=== PATIENT | female | born 1945 | race Caucasian/White ===

== ENCOUNTER 2018-06-04 14:04 | Emergency (ER) | payer MEDICARE ==
[2018-06-04 14:23] VITALS: RESP 18
--- NOTE | 2018-06-04 16:18 | ED ---
General Adult HPI - General Chief complaint: Recheck/Abnormal Lab/Rx Stated complaint: High blood pressure Time Seen by Provider: 06/04/18 16:16 Source: patient Mode of arrival: ambulatory Limitations: no limitations - History of Present Illness Initial comments: Sarah Rosas is a 72-year-old female with past medical history of hypertension who presents to the emergency department today for evaluation of hypertension. Patient reports that her daughter is a nurse and checks her blood pressure home. They've noted that recently her blood pressure is been elevated in the 180s, however today her blood pressure was greater than 200 systolic. She contacted her primary care physician and advised her to come to the emergency department for further evaluation. Patient denies any headache, vision change, confusion, chest pain, palpitations , shortness breath, abdominal pain, urine output decrease or any other complaints. She reports that she's otherwise been in her usual state of health. Patient has undergone an extensive evaluation for hypertension in the past including renal artery ultrasounds which revealed nothing. She previously followed with a weight clerk but currently does not. She states that she is on a water pill and inhibitor for her blood pressure. She states that she has been compliant with all of her blood pressure medications - Related Data Home Medications Medication Instructions Recorded Confirmed Ascorbic Acid [Vitamin C] 500 mg PO DAILY 06/04/18 06/04/18 Cyanocobalamin [Vitamin B-12] 500 mcg PO DAILY 06/04/18 06/04/18 Nystatin 500,000 units PO BID 06/04/18 06/04/18 Thiamine [Vitamin B-1] 100 mg PO DAILY 06/04/18 06/04/18 Vitamin E 100 unit PO DAILY 06/04/18 06/04/18 Previous Rx's Medication Instructions Recorded Enalapril [Vasotec] 5 mg PO DAILY #30 tablet 01/05/16 Allergies Allergy/AdvReac Type Severity Reaction Status Date / Time banana Allergy Unknown Verified 06/04/18 17:01 Iodinated Contrast- Oral and Allergy Anaphylaxis Verified 06/04/18 17:01 IV Dye Sulfa (Sulfonamide Allergy Rash/Hives Verified 06/04/18 17:01 Antibiotics) Review of Systems ROS Statement: Those systems with pertinent positive or pertinent negative responses have been documented in the HPI. ROS Other: All systems not noted in ROS Statement are negative. Past Medical History Past Medical History: Hypertension History of Any Multi-Drug Resistant Organisms: None Reported Past Surgical History: No Surgical Hx Reported Past Psychological History: No Psychological Hx Reported Smoking Status: Former smoker Past Alcohol Use History: None Reported Past Drug Use History: None Reported General Exam Limitations: no limitations General appearance: alert, in no apparent distress Head exam: Present: atraumatic, normocephalic Eye exam: Present: normal appearance, PERRL ENT exam: Present: normal exam Neck exam: Present: normal inspection Respiratory exam: Present: normal lung sounds bilaterally. Absent: respiratory distress Cardiovascular Exam: Present: regular rate, normal rhythm GI/Abdominal exam: Present: soft. Absent: distended, tenderness, pulsatile mass Rectal exam: Present: deferred Extremities exam: Present: normal inspection, normal capillary refill. Absent: pedal edema Back exam: Present: normal inspection Neurological exam: Present: alert, oriented X3, CN II-XII intact Psychiatric exam: Present: normal affect, normal mood Skin exam: Present: warm, dry Course Vital Signs 06/04/18 06/04/18 06/04/18 14:20 16:45 16:55 Temperature 99.1 F Pulse Rate 77 71 Pulse Rate [ 75 [employer] ] Respiratory 18 18 Rate Blood Pressure 201/71 189/83 O2 Sat by Pulse 97 98 Oximetry EKG Findings - EKG Comments: EKG Findings:: EKG, rate is 68, rhythm is normal sinus, axis is normal, intervals are normal, there are T-wave inversions in V2 and V3, no acute ST elevations or depressions. No evidence of acute ischemia or infarction. Medical Decision Making - Medical Decision Making The patient was seen and evaluated, history was obtained from the patient and her at bedside Patient with a history of hypertension, has visited the ER in the past for a symptomatically hypertension with systolics greater than 220, over the past couple weeks has noted that her blood pressures been elevated in the 180s but today her blood pressure was elevated greater than 200 systolic and her primary care physician advised to come to the ER for further evaluation. Patient remains asymptomatic, no focal neurologic deficits, no headache, no chest pain, no shortness of breath. Basic labs and EKG ordered for evaluation Clonidine ordered for hypertension Advised the patient follow up with her primary care physician and weight clerk for further discussion of management of her antihypertensives. Labs were unremarkable KG is no acute findings Patient's blood pressure improved significantly after by mouth clonidine, patient was reevaluated, reports feeling well, states she is ready to be discharged home. Request a prescription for clonidine. I advised the patient that she needs to follow up with her PCP to discuss her management of antihypertensives. Patient expressed concern that her PCP would not really treat her, I advised her that if she does not feel properly treated by her PCP she can follow up with her weight clerk. And at bedside expressed understanding, has R he contacted PCPs office from the ER with a planned follow-up tomorrow to discuss antihypertensive management. Patient was advised that if she develops any headache, vision changes, chest pain, shortness of breath or any new or concerning symptoms to return to the ER for reevaluation. All questions pertaining to care were answered to the best of my ability the patient was discharged home in stable condition. - Lab Data Result diagrams: 06/04/18 16:52 06/04/18 16:52 Lab Results 06/04/18 06/04/18 06/04/18 Range/Units 16:52 16:52 16:52 WBC 8.4 (3.8-10.6) k/uL RBC 4.58 (3.80-5.40) m/uL Hgb 14.7 (11.4-16.0) gm/dL Hct 42.9 (34.0-46.0) % MCV 93.5 (80.0-100.0) fL MCH 32.1 (25.0-35.0) pg MCHC 34.3 (31.0-37.0) g/dL RDW 12.6 (11.5-15.5) % Plt Count 180 (150-450) k/uL Neutrophils % 65 % Lymphocytes % 20 % Monocytes % 9 % Eosinophils % 2 % Basophils % 0 % Neutrophils # 5.4 (1.3-7.7) k/uL Lymphocytes # 1.7 (1.0-4.8) k/uL Monocytes # 0.7 (0-1.0) k/uL Eosinophils # 0.1 (0-0.7) k/uL Basophils # 0.0 (0-0.2) k/uL Sodium 137 (137-145) mmol/L Potassium 4.4 (3.5-5.1) mmol/L Chloride 101 (98-107) mmol/L Carbon Dioxide 29 (22-30) mmol/L Anion Gap 7 mmol/L BUN 17 (7-17) mg/dL Creatinine 0.91 (0.52-1.04) mg/dL Est GFR (CKD-EPI)AfAm 72 (>60 ml/min/1.73 sqM) Est GFR (CKD-EPI)NonAf 63 (>60 ml/min/1.73 sqM) Glucose 85 (74-99) mg/dL Calcium 9.9 (8.4-10.2) mg/dL Magnesium 1.8 (1.6-2.3) mg/dL Troponin I (0.000-0.034) ng/mL NT-Pro-B Natriuret Pep 508 pg/mL 06/04/18 Range/Units 16:52 WBC (3.8-10.6) k/uL RBC (3.80-5.40) m/uL Hgb (11.4-16.0) gm/dL Hct (34.0-46.0) % MCV (80.0-100.0) fL MCH (25.0-35.0) pg MCHC (31.0-37.0) g/dL RDW (11.5-15.5) % Plt Count (150-450) k/uL Neutrophils % % Lymphocytes % % Monocytes % % Eosinophils % % Basophils % % Neutrophils # (1.3-7.7) k/uL Lymphocytes # (1.0-4.8) k/uL Monocytes # (0-1.0) k/uL Eosinophils # (0-0.7) k/uL Basophils # (0-0.2) k/uL Sodium (137-145) mmol/L Potassium (3.5-5.1) mmol/L Chloride (98-107) mmol/L Carbon Dioxide (22-30) mmol/L Anion Gap mmol/L BUN (7-17) mg/dL Creatinine (0.52-1.04) mg/dL Est GFR (CKD-EPI)AfAm (>60 ml/min/1.73 sqM) Est GFR (CKD-EPI)NonAf (>60 ml/min/1.73 sqM) Glucose (74-99) mg/dL Calcium (8.4-10.2) mg/dL Magnesium (1.6-2.3) mg/dL Troponin I <0.012 (0.000-0.034) ng/mL NT-Pro-B Natriuret Pep pg/mL Disposition Clinical Impression: Hypertension Disposition: HOME SELF-CARE Condition: Good Instructions: DASH Eating Plan (ED), Hypertension (ED) Is patient prescribed a controlled substance at d/c from ED?: No Referrals: Nael Shaffer DO [Primary Care Provider] - 1-2 days Time of Disposition: 17:55
[2018-06-04] MEDS ORDERED: cloNIDine HCL 0.1 MG TAB PO STA (16:24)
[2018-06-04 17:06] LABS: Basophils % (A) 0 %; Eosinophils # (A) 0.1 k/uL (0-0.7); Eosinophils % (A) 2 %; HCT 42.9 % (34.0-46.0); HGB 14.7 gm/dL (11.4-16.0); Lymphocytes # (A) 1.7 k/uL (1.0-4.8); Lymphocytes % (A) 20 %; MCH 32.1 pg (25.0-35.0); MCHC 34.3 g/dL (31.0-37.0); MCV 93.5 fL (80.0-100.0); Mean Platelet Volume 7.6; Monocytes # (A) 0.7 k/uL (0-1.0); Monocytes % (A) 9 %; Neutrophils # (A) 5.4 k/uL (1.3-7.7); Neutrophils % (A) 65 %; Platelet Count 180 k/uL (150-450); RBC 4.58 m/uL (3.80-5.40); RDW 12.6 % (11.5-15.5); WBC 8.4 k/uL (3.8-10.6)
[2018-06-04 17:14] LABS: Calcium 9.9 mg/dL (8.4-10.2); Magnesium 1.8 mg/dL (1.6-2.3); Potassium 4.4 mmol/L (3.5-5.1)
[2018-06-04 18:12] VITALS: BP 166/63; PULSE 69; TEMP 98.2
== END 2018-06-04 18:11 | disposition home or self-care (01) ==
LOC: EC 14:04
DX: I10 Essential (primary) hypertension (principal); Z87.891 Personal history of nicotine dependence; Z79.899 Other long term (current) drug therapy; Z88.2 Allergy status to sulfonamides; Z91.018 Allergy to other foods; Z91.041 Radiographic dye allergy status
CPT/HCPCS: 36415; 80048; 83735; 83880; 84484; 85025; 93005; 99283

== ENCOUNTER → 2019-01-31 | Outpatient (CLI) | payer MEDICARE ==
--- NOTE | 2019-02-01 11:14 | MM ---
Reason for exam: screening (asymptomatic). Last mammogram was performed 3 years and 9 months ago. History: Patient is postmenopausal. Family history of breast cancer in sister. Physical Findings: A clinical breast exam by your physician is recommended on an annual basis and results should be correlated with mammographic findings. MG Screening Mammo w CAD Bilateral CC and MLO view(s) were taken. Prior study comparison: April 27, 2015, mammogram, performed at [facility]. August 19, 2014, mammogram, performed at [facility]. The breast tissue is heterogeneously dense. This may lower the sensitivity of mammography. No suspicious abnormality. No significant changes when compared with prior studies. ASSESSMENT: Negative, BI-RAD 1 RECOMMENDATION: Routine screening mammogram of both breasts in 1 year.
== END | disposition home or self-care (01) ==
LOC: RADMAMWWP 13:10
PROVIDERS: ATTEND Family Medicine
DX: Z12.31 Encounter for screening mammogram for malignant neoplasm of breast (principal)
CPT/HCPCS: 77067